=== PATIENT | male | born 1975 | race Two or more races ===

== ENCOUNTER 2018-02-18 01:39 | Emergency (ER) | payer OTHER ==
[~2018-02-18] VITALS: Ht 182.9 cm; Wt 79.4 kg
[2018-02-18] MEDS ORDERED: INTESTINEX680 M1 PO (04:22)
[2018-02-18] MEDS ORDERED: AMOX-CLAV 875-1 EACH PO (04:22)
== END 2018-02-18 04:26 ==
LOC: ER 01:39
DX: L02.01 Cutaneous abscess of face (principal)